=== PATIENT | male | born 1980 | race Caucasian/White ===

== ENCOUNTER 2017-02-16 13:35 | Emergency (ER) | payer OTHER ==
[~2017-02-16] VITALS: Ht 170.2 cm; Wt 68.0 kg
[~2017-02-16 13:35] MED LIST: Acular3 ML BOTHEYES; CEPH500 PO; CLIN300 PO; ESOM20 PO; FAMO20 PO; FAMO40 PO; HYDACE5 PO; HYDPAM50 PO; LEVFLO500 PO; OMEP20ER PO; ONDA4ODT MM; OXYACE5T PO; PEPTO BISMAL; PROC10 PO; PROC25S PR; PROM12.5S PR; PROM25 PO; PROM25S PR; Pepcid20 MG PO; Prednisone20 MG PO; RANI150; RANI150 PO; RXPROACE PO; RXPROM25S PR; SULTRIDS PO; TOBDEXOPSU BOTHEYES; Zofran Odt4 MG SL
[2017-02-16] MEDS ORDERED: Cleocin HCl300 MG PO (15:20)
== END 2017-02-16 15:52 | disposition home or self-care (01) ==
LOC: ER 13:35
DX: L03.031 Cellulitis of right toe (principal); F17.200 Nicotine dependence, unspecified, uncomplicated; Z88.0 Allergy status to penicillin; Z79.2 Long term (current) use of antibiotics
CPT/HCPCS: 73630; 87070; 87077; 87147; 87186; 87205; 99283

== ENCOUNTER → 2021-06-02 | Outpatient (CLI) | payer OTHER ==
[~2021-06-02] MED LIST changes: +Cleocin HCl300 MG PO
[2021-06-02 15:18] LABS: BASOPHILS ABSOLUTE AUTO 0.04 K/mm3 (0.00-0.23); BASOPHILS PERCENT AUTO 1 % (0-2); EOSINOPHILS ABSOLUTE AUTO 0.13 K/mm3 (0.00-0.68); EOSINOPHILS PERCENT AUTO 2 % (0-6); Hemoglobin 15.8 g/dL (13.5-17.5); IMMATURE GRAN ABSOLUTE AUTO 0.01 K/mm3 (0.00-0.10); IMMATURE GRAN PERCENT AUTO 0 % (0-1); LYMPHOCYTES ABSOLUTE AUTO 2.17 K/mm3 (0.84-5.20); LYMPHOCYTES PERCENT AUTO 31 % (21-46); MONOCYTES ABSOLUTE AUTO 0.69 K/mm3 (0.16-1.47); MONOCYTES PERCENT AUTO 10 % (4-13); Mean Corpuscular HGB Conc 32.9 g/dL (31.5-36.5); Mean Corpuscular Volume 94 fL (80-100); NEUTROPHILS PERCENT AUTO 56 % (41-73); Platelet Count 175 K/mm3 (150-400); RDW Coefficient Variation 12.2 % (11.7-14.2); RDW Standard Deviation 42.5 fL (35.1-46.3); Red Blood Cell Count 5.09 M/mm3 (4.30-5.90); White Blood Cell Count 6.94 K/mm3 (4.00-11.30)
[2021-06-02 15:57] LABS: Alanine Aminotransfer (ALT/SGP 51 U/L (12-78); Albumin, Blood 4.2 g/dL (3.4-5.0); Albumin/Globulin Ratio 1.3 (0.8-1.8); Alk Phos 78 U/L (50-136); Anion Gap 2 mmol/L (6-16); Aspartate Aminotrans (AST/SGOT 37 U/L (12-37); Bilirubin, Total 0.4 mg/dL (0.1-1.0); Blood Urea Nitrogen 10 mg/dL (8-24); CO2, Blood 29 mmol/L (21-32); Chloride, Blood 106 mmol/L (98-108); Creatinine, Blood 0.77 mg/dL (0.60-1.20); Globulin, Blood 3.2 g/dL (2.2-4.0); Glomerular Filtration Rate >60 (60-); Glucose, Blood 91 mg/dL (70-99); Potassium, Blood 4.5 mmol/L (3.5-5.5); Sodium, Blood 137 mmol/L (136-145); Total Protein, Blood 7.4 g/dL (6.4-8.2)
== END | disposition home or self-care (01) ==
LOC: LAB SHORT 13:01
PROVIDERS: Family Medicine
DX: R10.9 Unspecified abdominal pain (principal)
CPT/HCPCS: 80053; 83690; 85025

== ENCOUNTER 2022-01-12 09:28 | Emergency (ER) | payer OTHER ==
[~2022-01-12] VITALS: Ht 170.2 cm; Wt 74.8 kg
[2022-01-12] MEDS ORDERED: HYDR1TAB94 PO (11:13)
== END 2022-01-12 11:16 | disposition home or self-care (01) ==
LOC: ER 09:28
DX: S22.42XA Multiple fractures of ribs, left side, initial encounter for closed fracture (principal); Z88.0 Allergy status to penicillin; F17.210 Nicotine dependence, cigarettes, uncomplicated; W01.0XXA Fall on same level from slipping, tripping and stumbling without subsequent striking against object, initial encounter
CPT/HCPCS: 71101

== ENCOUNTER 2022-06-13 12:36 | Day surgery (SDC) | payer OTHER ==
[~2022-06-13] VITALS: Ht 170.2 cm; Wt 82.2 kg
[~2022-06-13 12:36] MED LIST changes: +HYDR1TAB94 PO
[2022-06-13 15:01] VITALS: BP 144/106
== END 2022-06-13 15:00 | disposition home or self-care (01) ==
LOC: ORSCSDS 12:36
PROVIDERS: Surgery
PROC: 0DBM8ZX Excision of Descending Colon, Via Natural or Artificial Opening Endoscopic, Diagnostic (ICD-10-PCS; principal; 2022-06-13 13:45)
DX: K62.5 Hemorrhage of anus and rectum (principal); K63.5 Polyp of colon; K64.4 Residual hemorrhoidal skin tags; F17.210 Nicotine dependence, cigarettes, uncomplicated
CPT/HCPCS: 88305; J0330; J0461; J2001; J2250; J2405; J2704; J7120; Q9968

== ENCOUNTER 2023-03-05 07:22 | Day surgery (SDC) | payer OTHER ==
[~2023-03-05] VITALS: Ht 170.2 cm; Wt 77.0 kg
[2023-03-05] VITALS (9 sets, daily range): BP systolic 124–165; BP diastolic 77–100
--- NOTE | 2023-03-05 11:58 | NUR ---
Discharge instructions reviewed with patient. Patient verbalizes understanding. Copy given to patient to take home. 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 Patient States Post-Procedure ride home has been arranged. Discharged via wheelchair to private car for ride home.
== END 2023-03-05 12:00 | disposition home or self-care (01) ==
LOC: ORSCMMR 07:22 → ORD 08:30 → ORSCMMR 09:00
PROVIDERS: Surgery
PROC: 06BY0ZC Excision of Hemorrhoidal Plexus, Open Approach (ICD-10-PCS; principal; 2023-03-05 09:00)
DX: K62.5 Hemorrhage of anus and rectum (principal); K64.8 Other hemorrhoids; K64.4 Residual hemorrhoidal skin tags; K62.1 Rectal polyp; K21.9 Gastro-esophageal reflux disease without esophagitis; F17.210 Nicotine dependence, cigarettes, uncomplicated
CPT/HCPCS: 88304; 88305; A9270; J1100; J2405; J2704; J3010; J7120